=== PATIENT | female | born 1990 | race Caucasian/White ===

== ENCOUNTER 2016-12-02 20:45 | Outpatient (CLI) | payer MEDICAID ==
[~2016-12-02] VITALS: Ht 157.5 cm; Wt 96.0 kg
[2016-12-02 21:13] VITALS: BP 106/74
== END 2016-12-02 22:48 | disposition home or self-care (01) ==
LOC: LDOP 20:45
PROVIDERS: ATTEND Student in an Organized Health Care Education/Training Program
DX: O62.9 Abnormality of forces of labor, unspecified (principal); Z3A.39 39 weeks gestation of pregnancy
CPT/HCPCS: 59025; 99211; G0463

== ENCOUNTER 2017-02-07 05:22 | Day surgery (SDC) | payer MEDICAID ==
[~2017-02-07] VITALS: Ht 157.5 cm; Wt 91.0 kg
[~2017-02-07 05:22] MED LIST: HYDR-3240 PO; IBUP-1222 PO
[2017-02-07] MEDS ORDERED: LIDOCAINE 1%, 2ML ONE (06:09)
[2017-02-07] MEDS ORDERED: LACTATED RINGERS 1,000 ML IV SCH (06:19)
[2017-02-07] MEDS ORDERED: IBUP200C PO (06:22)
[2017-02-07 06:23] VITALS: BP 103/68
[2017-02-07] MEDS ORDERED: BUPIVACAINE/PF-EPI 0.25% 1:200K ONE (06:25)
[2017-02-07] MEDS ORDERED: SILVER NITRATE STICK TP ONE (06:25)
[2017-02-07] MEDS ORDERED: LIDOCAINE 1%, 2ML SQ PRN (06:30)
[2017-02-07 06:46] LABS: HCG UR OBC PASS
[2017-02-07] MEDS ORDERED: HYDROmorphone 1 MG/ML, 1ML ONE ×2 (07:23→09:26)
[2017-02-07] MEDS ORDERED: FENTANYL PF 250 MCG/5ML ONE (07:23)
[2017-02-07] MEDS ORDERED: KETAMINE 10 MG/ML, 20ML ONE (07:23)
[2017-02-07] MEDS ORDERED: DEXAMETHASONE 4 MG/ML, 1ML ONE (07:41)
[2017-02-07] MEDS ORDERED: METOCLOPRAMIDE 5 MG/ML, 2ML ONE (07:41)
[2017-02-07] MEDS ORDERED: ROCURONIUM 10 MG/ML ONE (07:41)
[2017-02-07] MEDS ORDERED: ONDANSETRON 2MG/ML, 2ML ONE (07:41)
[2017-02-07] MEDS ORDERED: NEOSTIGMINE 1 MG/ML, 10ML ONE (07:41)
[2017-02-07] MEDS ORDERED: GLYCOPYRROLATE 0.2MG/1ML ONE (07:41)
[2017-02-07] MEDS ORDERED: PROPOFOL 10 MG/ML, 20ML ONE (07:41)
[2017-02-07] MEDS ORDERED: CEFAZOLIN 1,000 MG ONE (07:41)
[2017-02-07] MEDS ORDERED: KETOROLAC 30 MG/1 ML ONE (07:41)
[2017-02-07] MEDS ORDERED: hydrALAzine 20 MG/ML, 1ML IV PRN (08:00)
[2017-02-07] MEDS ORDERED: ONDANSETRON 2MG/ML, 2ML IVPush PRN (08:00)
[2017-02-07] MEDS ORDERED: MIDAZOLAM 1 MG/ML, 2ML IV PRN (08:00)
[2017-02-07] MEDS ORDERED: LABETALOL 5MG/ML, 20ML IV PRN (08:00)
[2017-02-07] MEDS ORDERED: OXYcodone 5 MG/5 ML ORAL.SOL UDC PO PRN (08:00)
[2017-02-07] MEDS ORDERED: MEPERIDINE/PF 25MG/0.5ML IVPush PRN (08:00)
[2017-02-07] MEDS ORDERED: FENTANYL PF 100 MCG/2ML ONE ×2 (08:58→09:16)
[2017-02-07] MEDS ORDERED: OXYcodone 5 MG/5 ML ORAL.SOL UDC ONE (08:59)
[2017-02-07] MEDS: FENTANYL PF 100 MCG/2ML IV PRN ×4 (09:00→09:25)
[2017-02-07] MEDS: HYDROmorphone 1 MG/ML, 1ML IV PRN ×2 (09:28→09:37)
[2017-02-07] MEDS ORDERED: PROMETHAZINE 25 MG SUPP PR ONE ×2 (10:48→11:00)
[2017-02-07] MEDS ORDERED: PROMETHAZINE 25 MG SUPP PR PRN (11:00)
[2017-02-07] MEDS ORDERED: OXYcodone/APAP 5/325MG TABLET ONE (13:16)
[2017-02-07] MEDS ORDERED: OXYcodone/APAP 5/325MG TABLET PO PRN (13:30)
== END 2017-02-07 13:45 | disposition home or self-care (01) ==
LOC: OUT 05:22
PROVIDERS: ATTEND Student in an Organized Health Care Education/Training Program
DX: Z30.2 Encounter for sterilization (principal); Z88.0 Allergy status to penicillin; Z88.8 Allergy status to other drugs, medicaments and biological substances; G43.909 Migraine, unspecified, not intractable, without status migrainosus; G93.5 Compression of brain; M54.2 Cervicalgia; G89.29 Other chronic pain; H53.489 Generalized contraction of visual field, unspecified eye; Z90.49 Acquired absence of other specified parts of digestive tract; Z98.890 Other specified postprocedural states; Z80.3 Family history of malignant neoplasm of breast
CPT/HCPCS: 36415; 58661; 81025; 85025; 86850; 86900; 88302; J0690; J1100; J1170; J1885; J2405; J2704; J2710; J2765; J3010; J3490; J7120

== ENCOUNTER 2019-09-26 12:14 | Emergency (ER) | payer MEDICAID ==
[~2019-09-26] VITALS: Ht 157.5 cm; Wt 70.0 kg
[~2019-09-26 12:14] MED LIST changes: +IBUP-1623 PO
[2019-09-26 12:23] VITALS: BP 112/72
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
--- NOTE | 2019-09-26 12:45 | NUR ---
REPORT GIVEN TO BE ROSADO. PT BELONGINGS PLACED IN ED LOCKER. 1 SUITCASE AND [address] IN SECURE ROOM.
[2019-09-26 12:50] LABS: BASOPHILS # (AUTO) 0.03 x10^3/uL (0-0.1); BASOPHILS % (AUTO) 0 % (0-1); EOSINOPHILS # (AUTO) 0.01 x10^3/uL (0-0.4); EOSINOPHILS % (AUTO) 0 % (1-7); LYMPHOCYTES % (AUTO) 15 % (22-44); MD NO; MEAN CORPUSCULAR HGB CONC 33.3 g/dL (32.4-35.8); MEAN CORPUSCULAR VOLUME 90.1 fL (80-100); MEAN PLATELET VOLUME 8.3 fL (7.4-10.4); MONOCYTES # (AUTO) 0.39 x10^3/uL (0.2-0.8); MONOCYTES % (AUTO) 5 % (2-9); NEUTROPHILS % (AUTO) 79 % (42-75); PLATELET COUNT 273 x10^3/uL (130-400); RED BLOOD COUNT 4.76 x10^6/uL (3.82-5.3); RED CELL DISTRIBUTION WIDTH 13.3 % (9.6-15.2)
--- NOTE | 2019-09-26 12:57 | NUR ---
I AM ASSUMING CARE OF THIS PT WHILE BE (RN) ENJOYS A LUNCH BREAK. SBAR WAS EXCHANGED AT THE BEDSIDE.
[2019-09-26 13:00] LABS: ALBUMIN 4.6 g/dL (3.4-5.0); ANION GAP 4 mmol/L (5-15); CALCIUM 9.5 mg/dL (8.5-10.1); CHLORIDE 110 mmol/L (98-107)
[2019-09-26] MEDS ORDERED: LORazepam 1MG TABLET ONE (13:00)
[2019-09-26] MEDS ORDERED: LORazepam 1MG TABLET PO ONE (13:00)
[2019-09-26 13:01] LABS: CREATININE 0.91 mg/dL (0.55-1.02); SALICYLATE LEVEL < 1.7 mg/dL (2.8-20.0)
[2019-09-26 13:05] LABS: AMPHETAMINE SCREEN, URINE Negative (Negative); BARBITURATE SCREEN, URINE Negative (Negative); BENZODIAZEPINE SCREEN, URINE Negative (Negative); CANNABINOID SCREEN, URINE Positive (Negative); COCAINE SCREEN, URINE Negative (Negative); METHADONE SCREEN, URINE Negative (Negative); OPIATE SCREEN, URINE Negative (Negative)
--- NOTE | 2019-09-26 13:31 | NUR ---
PER REPORT PT REFUSED MEAL TRAY AT THIS TIME, PT WAS MEDICATED WITH PRN ANXIETY MEDICATION
--- NOTE | 2019-09-26 15:24 | NUR ---
PT RESTING ON GURNEY, VISIBLE CHEST RISE AND FALL NOTED. NAD NOTED AT THIS TIME
--- NOTE | 2019-09-26 17:02 | NUR ---
PT OFFERED EVENING MEAL TRAY, PT DECLINED AT THIS TIME. AWAITING PLACEMENT, NAD NOTED
--- NOTE | 2019-09-26 17:51 | NUR ---
CALLED [facility] TO INFORM THEM PT IS MEDICALLY CLEARED TO RETURN TO FACILITY. TOLD BY INTAKE PERSON, PT INFO NEEDS TO BE FAXED TO THEM BEFORE THEY WILL CONSIDER TAKING PT SHE DID NOT HAVE A BED THERE. PT PACKET FAXED TO [place], [facility], [facility].
--- NOTE | 2019-09-26 19:08 | NUR ---
BEDSIDE REPORT RECIEVED FROM [facility]
== END 2019-09-26 21:04 ==
LOC: ED 16:01
DX: F33.9 Major depressive disorder, recurrent, unspecified (principal); R45.851 Suicidal ideations
CPT/HCPCS: 36415; 80048; 80307; 82040; 85025; 99285

== ENCOUNTER 2019-09-26 20:36 | Inpatient (IN) | payer MEDICAID ==
[~2019-09-26] VITALS: Ht 157.5 cm; Wt 67.6 kg
[2019-09-26] MEDS ORDERED: DOCUSATE 100 MG CAPSULE PO PRN (21:00)
[2019-09-26] MEDS ORDERED: BISACODYL 10 MG SUPP PR PRN (21:00)
[2019-09-26] MEDS ORDERED: ONDANSETRON ODT 4 MG PO PRN (21:00)
[2019-09-26] MEDS ORDERED: POLYETHYLENE GLYCOL 17 GM PACKET PO PRN (21:00)
[2019-09-26 21:26] LABS: ALBUMIN 4.6 g/dL (3.4-5.0); BILIRUBIN, DIRECT 0.3 mg/dL (0.1-0.2)
[2019-09-26] MEDS ORDERED: TRAZODONE 50MG TABLET ONE (21:34)
[2019-09-26] MEDS: TRAZODONE 50MG TABLET PO PRN (21:35)
[2019-09-26 21:36] LABS: BILIRUBIN,INDIRECT 1.3 mg/dL (0.0-2.0); BILIRUBIN,TOTAL 1.6 mg/dL (0.2-1.0); CHOL/HDL RATIO 3.4; FREE T4 (FREE THYROXINE) 1.37 ng/dL (0.76-1.46); LDL/HDL RATIO 2.2 (0.5-3.0); TOTAL PROTEIN 7.5 g/dL (6.4-8.2)
[2019-09-26 21:37] VITALS: BP 111/73
[2019-09-26 21:59] VITALS: BP 112/78
[2019-09-26 22:54] LABS: CULTURE INDICATED? YES; MICROSCOPIC INDICATED
[2019-09-27 05:41] LABS: ANION GAP 7 mmol/L (5-15); CALCIUM 8.8 mg/dL (8.5-10.1); CHLORIDE 111 mmol/L (98-107)
[2019-09-27 05:42] LABS: CREATININE 0.75 mg/dL (0.55-1.02)
[2019-09-27 07:25] VITALS: BP 106/73
[2019-09-27] MEDS: PROMETHAZINE 25MG TABLET PO PRN ×2 (07:56→18:08)
[2019-09-27 19:44] VITALS: BP 109/76
[2019-09-27] MEDS: TRAZODONE 50MG TABLET PO PRN (20:20)
[2019-09-27] MEDS: CARBAMAZEPINE 200 MG TABLET PO SCH (20:20)
[2019-09-28 07:38] VITALS: BP 112/73
[2019-09-28] MEDS: SERTRALINE 50MG TABLET PO SCH (08:19)
[2019-09-28] MEDS: ACETAMINOPHEN 325 MG TABLET PO PRN (14:15)
[2019-09-28 19:50] VITALS: BP 112/71
[2019-09-28] MEDS: CARBAMAZEPINE 200 MG TABLET PO SCH (20:31)
[2019-09-28] MEDS: TRAZODONE 50MG TABLET PO PRN (20:31)
[2019-09-29 07:20] VITALS: BP 102/70
[2019-09-29] MEDS: SERTRALINE 50MG TABLET PO SCH (08:35)
[2019-09-29 20:00] VITALS: BP 125/74
[2019-09-29] MEDS: TRAZODONE 100MG TABLET PO PRN (20:48)
[2019-09-29] MEDS: CARBAMAZEPINE 200 MG TABLET PO SCH (20:48)
[2019-09-30 07:04] VITALS: BP 101/67
[2019-09-30] MEDS: SERTRALINE 50MG TABLET PO SCH (11:46)
[2019-09-30] MEDS ORDERED: TRAZ-137 PO (14:30)
[2019-09-30] MEDS ORDERED: SERT50TA28 PO (14:30)
[2019-09-30] MEDS ORDERED: CARB200T4 PO (14:30)
[2019-09-30] MEDS: ACETAMINOPHEN 325 MG TABLET PO PRN (17:28)
[2019-09-30 19:35] VITALS: BP 126/85
[2019-09-30] MEDS: CARBAMAZEPINE 200 MG TABLET PO SCH (20:04)
[2019-09-30] MEDS: TRAZODONE 100MG TABLET PO PRN (20:09)
[2019-10-01 07:18] VITALS: BP 104/71
[2019-10-01] MEDS: SERTRALINE 50MG TABLET PO SCH (08:18)
== END 2019-10-01 15:00 | disposition home or self-care (01) | DRG 753 ==
LOC: 3E 21:16
PROVIDERS: ADMIT Psychiatry & Neurology Psychosomatic Medicine; ATTEND Psychiatry & Neurology Psychosomatic Medicine
DX: F31.30 Bipolar disorder, current episode depressed, mild or moderate severity, unspecified (principal); R45.851 Suicidal ideations; I48.0 Paroxysmal atrial fibrillation; F12.10 Cannabis abuse, uncomplicated; Z79.899 Other long term (current) drug therapy; Z80.3 Family history of malignant neoplasm of breast; Z91.5 Personal history of self-harm; Z88.0 Allergy status to penicillin; Z88.8 Allergy status to other drugs, medicaments and biological substances
CPT/HCPCS: 36415; 71045; 80048; 80061; 80076; 81001; 84439; 84443; 87086; 93005; Q0169